=== PATIENT | male | born 1985 | race Caucasian/White ===

== ENCOUNTER 2019-09-11 21:07 | Emergency (ER) | payer OTHER ==
[~2019-09-11] VITALS: Ht 177.8 cm; Wt 88.6 kg
[2019-09-11 21:07] VITALS: BP 156/92
[2019-09-11] MEDS ORDERED: GLUCAGON FOR INJ 1 MG VIAL (J1610) IV STA (21:22)
== END 2019-09-11 21:45 | disposition home or self-care (01) ==
LOC: M ED 21:07
DX: T18.128A Food in esophagus causing other injury, initial encounter (principal); X58.XXXA Exposure to other specified factors, initial encounter; Y92.89 Other specified places as the place of occurrence of the external cause

== ENCOUNTER 2022-04-28 20:16 | Day surgery (SDC) | payer OTHER ==
[~2022-04-28] VITALS: Ht 177.8 cm; Wt 92.3 kg
[2022-04-28] MEDS ORDERED: GLUCAGON INJ 1MG VIAL IV STA (20:31)
[2022-04-28 21:02] LABS: BASO # 0.1 10^3/uL (0.0-0.2); BASO % 1.1 % (0.0-1.0); EOS # 0.4 10^3/uL (0.0-0.5); HEMATOCRIT 39.4 % (42.0-52.0); LYMPH # 1.9 10^3/uL (1.5-5.0); LYMPH % 26.1 % (24.0-44.0); MEAN CORPUSCULAR HEMOGLOBIN 27.8 pg (27.0-33.0); MEAN CORPUSCULAR VOLUME 84.4 fl (80.0-96.0); MONO # 0.4 10^3/uL (0.0-0.8); MONO % 5.6 % (2.0-8.0); NEUTROPHILS # 4.4 10^3/uL (1.5-8.5); NEUTROPHILS % 60.8 % (36.0-66.0); PLATELET COUNT, AUTOMATED 272 10^3/uL (150-450); RED BLOOD COUNT 4.67 10^6/uL (4.30-6.10); WHITE BLOOD COUNT 7.2 10^3/uL (4.0-10.0)
[2022-04-28 21:32] LABS: BLOOD UREA NITROGEN 14 MG/DL (9-23); CALCIUM LEVEL 9.4 MG/DL (8.5-10.1); CARBON DIOXIDE LEVEL 28 MMOL/L (20-31); CHLORIDE LEVEL 104 MMOL/L (98-107); CREATININE FOR GFR 1.07 MG/DL (0.70-1.30); GLOMERULAR FILTRATION RATE > 60.0 (>60); GLUCOSE, FASTING 93 MG/DL (60-100); POTASSIUM SERUM 4.1 MMOL/L (3.5-5.1); SODIUM LEVEL 141 MMOL/L (136-145)
[2022-04-28 21:37] LABS: RSV AMPLIFICATION NEGATIVE (NEGATIVE)
[2022-04-28] MEDS ORDERED: HOME MED LIST COMPLETE! XX SCH (22:00)
[2022-04-28] MEDS ORDERED: ONDANSETRON 4MG 2ML VIAL IV PRN (22:25)
[2022-04-28] MEDS ORDERED: fentaNYL 100 MCG/2 ML INJECTION IV PRN (22:25)
[2022-04-28] MEDS ORDERED: LR 1,000 ML IV SCH (22:25)
[2022-04-28] MEDS ORDERED: METOCLOPRAMIDE INJ 10MG/2ML VIAL IV PRN (22:25)
[2022-04-29] MEDS ORDERED: MIDAZOLAM INJ 2MG/2ML VIAL (J2250 PER 1MG) As Ordered ONE (00:25)
[2022-04-29] MEDS ORDERED: LIDOCAINE 2% 100MG/5ML SDV (FOR ANES.) As Ordered ONE (00:25)
[2022-04-29] MEDS ORDERED: propofoL 200 MG/20 ML VIAL As Ordered ONE (00:25)
[2022-04-29] MEDS ORDERED: ROCURONIUM BROMIDE 50 MG/5 ML VIAL As Ordered ONE (00:25)
[2022-04-29] MEDS ORDERED: fentaNYL 100 MCG/2 ML INJECTION As Ordered ONE (00:25)
[2022-04-29] MEDS ORDERED: SUCCINYLCHOLINE 100 MG/5 ML SYRINGE (J0330) As Ordered ONE (00:26)
[2022-04-29] MEDS ORDERED: SUGAMMADEX SODIUM 500 MG/5 ML VIAL (BRIDION) As Ordered ONE (00:26)
[2022-04-29] MEDS ORDERED: ONDANSETRON 4MG 2ML VIAL As Ordered ONE (00:32)
[2022-04-29] MEDS ORDERED: PHENYLephrine 500MCG 5ML (100MCG/ML) SYRINGE As Ordered ONE (01:15)
[2022-04-29] MEDS ORDERED: KETOROLAC 60MG 2ML VIAL As Ordered ONE (01:17)
[2022-04-29] MEDS ORDERED: PROT1TAB2 PO (01:30)
[2022-04-29 02:16] VITALS: BP 135/85
== END 2022-04-29 02:00 | disposition home or self-care (01) ==
LOC: M ED 20:16 → M SDC 21:53
PROVIDERS: ATTEND Surgery
DX: T18.128A Food in esophagus causing other injury, initial encounter (principal); K20.90 Esophagitis, unspecified without bleeding
CPT/HCPCS: 43247; 80048; 85025; 87631; 96374; 99284; J0330; J1100; J1610; J1885; J2250; J2370; J2405; J3010